=== PATIENT | female | born 1940 | race Caucasian/White ===

== ENCOUNTER 2016-12-04 18:16 | Emergency (ER) | payer MEDICARE ==
[~2016-12-04 18:16] MED LIST: ACET500CAP PO; ALLEGRA180 PO; ALLEGRA30 MG PO; ASAB PO; BETAPACE80 PO; BYSTOLIC10 MG PO; BYSTOLIC5 MG PO; CARDU4 PO; CAT1 PO; CORDARONE PO; COZAAR100 MG PO; ELIQUIS 5 MG TAB5 MG PO; FLORASTOR250 MG PO; FLOVENT110 INH; L40 PO; LEVOTHYROXIN125 MCG PO; LEVOTHYROXIN150 MCG PO; LEVOTHYROXIN200 MCG PO; MEVACOR40 MG PO; NYS500UDL PO; OTC IRON PO; PACERONE100 MG PO; PLAVIX PO; PREVALITE4 G1 PO; PROVHFA INH; VITAMIN D1000 UNI1 PO
== END 2016-12-04 21:00 | disposition home or self-care (01) ==
LOC: ER 18:16
DX: S89.92XA Unspecified injury of left lower leg, initial encounter (principal); I10 Essential (primary) hypertension; J45.909 Unspecified asthma, uncomplicated; Z95.5 Presence of coronary angioplasty implant and graft; K58.9 Irritable bowel syndrome, unspecified; Z88.0 Allergy status to penicillin; Z88.8 Allergy status to other drugs, medicaments and biological substances; Z79.899 Other long term (current) drug therapy; X58.XXXA Exposure to other specified factors, initial encounter
CPT/HCPCS: 73560-LT; 99283